=== PATIENT | male | born 1955 | race Caucasian/White ===

== ENCOUNTER → 2017-01-24 | Outpatient (CLI) | payer MEDICARE ==
--- NOTE | 2017-01-24 12:46 | RAD ---
EXAM: Left elbow 3 views. HISTORY: Left elbow pain and swelling. COMPARISON: None. FINDINGS: Soft tissue swelling at the olecranon indicates olecranon bursitis. There is no clear underlying erosion. No fractures are identified. A small joint effusion may be present. Mild humeral ulnar joint space narrowing is suspected without clear osteophytosis. There is calcification at the common flexor origin. A metallic foreign body within the soft tissues of the lateral proximal forearm measures 2 mm. IMPRESSION: 1. Changes of calcific tendinitis versus enthesopathic ossification at the common flexor origin. 2. 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 3. Mild olecranon bursitis.
== END | disposition home or self-care (01) ==
LOC: DXRADRC 11:01
PROVIDERS: ATTEND General Practice
DX: M70.22 Olecranon bursitis, left elbow (principal)
CPT/HCPCS: 73080